=== PATIENT | male | born 1955 | race American Indian/Alaskan Native ===

== ENCOUNTER 2018-05-02 10:15 | Outpatient (CLI) | payer OTHER ==
--- NOTE | 2018-05-02 11:27 | Cat Scan Report ---
CT HEAD WITHOUT CONTRAST: HISTORY: Headache disorder. TECHNIQUE: Sequential 2.5mm CT images. COMPARISON: none. FINDINGS: Cerebral Parenchyma: Within normal limits. Cerebellum: Within normal limits. Brainstem: Within normal limits. Ventricles: Normal. Sella: Normal. Extra-axial spaces: Normal. Basal Cisterns: Normal. Intracranial Hemorrhage: None. Midline Shift: None. Calvarium: Normal. Sinuses: Normal. Mastoid Air Cells: Normal. Visualized Orbits: Normal. IMPRESSION: Cranial CT scan within normal limits.
== END 2018-05-02 10:16 | disposition home or self-care (01) ==
LOC: CT 10:15
PROVIDERS: ATTEND Internal Medicine
DX: R51 Headache (principal); E78.00 Pure hypercholesterolemia, unspecified; I10 Essential (primary) hypertension; Z87.891 Personal history of nicotine dependence
CPT/HCPCS: 70450

== ENCOUNTER 2018-10-11 10:11 | Observation (INO) | payer OTHER, MEDICARE ==
[2018-10-03 13:32] LABS: Basophils # (Auto) 0.1 K/mm3 (0.0-0.1); Basophils % (Auto) 2.4 % (0.0-1.8); Eosinophils # (Auto) 0.1 K/mm3 (0.0-0.4); Eosinophils % (Auto) 1.3 % (0.0-4.3); Hematocrit 43.8 % (35.5-45.6); Hemoglobin 15.3 gm/dl (11.8-15.2); Lymphocytes # (Auto) 2.3 K/mm3 (1.2-5.4); Lymphocytes % (Auto) 48.2 % (13.4-35.0); Mean Corpuscular HGB Conc 35 % (32-34); Mean Corpuscular Volume 80 fl (84-94); Monocytes # (Auto) 0.3 K/mm3 (0.0-0.8); Platelet Count 230 K/mm3 (140-440); Red Cell Distribution Width 13.1 % (13.2-15.2)
--- NOTE | 2018-10-03 13:33 | Anesthesia Consultation ---
Anesthesia Consult and Med Hx Date of service: 10/03/18 - Airway Anesthetic Teeth Evaluation: Good ROM Head & Neck: Adequate Mental/Hyoid Distance: Adequate Mallampati Class: Class II Intubation Access Assessment: Good - Pulmonary Exam CTA: Yes - Cardiac Exam Cardiac Exam: RRR - Pre-Operative Health Status ASA Pre-Surgery Classification: ASA2 Proposed Anesthetic Plan: General (Patient with HTN , cleared by cardiology) - Pulmonary Hx Smoking: Yes (STOPPED 1985) Hx Asthma: No Hx Respiratory Symptoms: No COPD: No Hx Sleep Apnea: No (WILLIAM PRE SCREEN HIGH RISK) - Cardiovascular System Hx Hypertension: Yes (X 11 YRS) Hx Heart Attack/AMI: No - Central Nervous System Hx Seizures: No CVA: No Hx Back Pain: Yes - Gastrointestinal Hx Gastroesophageal Reflux Disease: No - Endocrine Hx Renal Disease: No Hx Liver Disease: No Hx Insulin Dependent Diabetes: No Hx Thyroid Disease: No - Hematic Hx Anemia: No - Other Systems Hx Cancer: No
[2018-10-03 13:45] LABS: INR 1.05 (0.87-1.13)
[2018-10-03 13:49] LABS: Alanine Aminotransferase 13 units/L (7-56); Albumin 4.3 g/dL (3.9-5); BUN/Creatinine Ratio 14; Blood Urea Nitrogen 14 mg/dL (9-20); Calcium 9.5 mg/dL (8.4-10.2); Hemolysis Index 14
[~2018-10-11 10:11] MED LIST: LACTATED RINGERS 1,000 ML IV SCH; VERSED IV NR; ZOFRAN IV NR
[2018-10-11] MEDS ORDERED: XYLOCAINE MPF 2% ONE (12:42)
[2018-10-11] MEDS ORDERED: SUBLIMAZE ONE (12:42)
[2018-10-11] MEDS ORDERED: DIPRIVAN 10 MG/ML IV ONE (12:43)
[2018-10-11] MEDS ORDERED: ANCEF/STERILE WATER 2 GM/20 ML IV NR (13:14)
--- NOTE | 2018-10-11 13:46 | Short Stay Summary ---
Short Stay Documentation Date of service: 10/11/18 - Allergies and Medications Current Medications: Allergies No Known Allergies Allergy (Verified 12/27/17 16:29) Home Medications Medication Instructions Recorded Confirmed Last Taken Type Finasteride [Proscar] 5 mg PO QDAY 12/27/17 10/03/18 10/10/18 History Losartan [Cozaar] 100 mg PO QDAY 12/27/17 10/11/18 10/11/18 08:15 History Naproxen [Naprosyn] 500 mg PO PRN PRN 12/27/17 10/11/18 1 Week Ago History ~10/04/18 Tamsulosin [Flomax] 0.8 mg PO QHS 12/27/17 10/03/18 10/10/18 History hydroCHLOROthiazide [HCTZ] 25 mg PO QDAY 12/27/17 10/03/18 10/10/18 History Active Medications Cefazolin Sodium (Ancef/Sterile Water 2 Gm/20 Ml) 2 gm IV PREOP NR Stop: 10/11/18 23:59 Lactated Ringer's (Lactated Ringers) 1,000 mls @ 100 mls/hr IV DIRECT LOTTIE Last Admin: 10/11/18 11:05 Dose: 100 mls/hr Documented by: Midazolam HCl (Versed) 2 mg IV PREOP NR Stop: 10/11/18 23:59 Last Admin: 10/11/18 11:29 Dose: 2 mg Documented by: Ondansetron HCl (Zofran) 4 mg IV PREOP NR Stop: 10/11/18 23:59 Last Admin: 10/11/18 11:30 Dose: 4 mg Documented by: - Brief post op/procedure progress note Date of procedure: 10/11/18 Pre-op diagnosis: BPH / Inc Empt Post-op diagnosis: same Procedure: TURP / Bilpolar, Plasma Button Anesthesia: GETA - Hospital course Hospital course: orpacu Short Stay Discharge Plan Activity: advance as tolerated Follow up with: AMMY BHATTI MD [Staff Physician] - 7 Days
[2018-10-11] MEDS ORDERED: SUBLIMAZE IV PRN (13:57)
--- NOTE | 2018-10-11 13:57 | Anesthesia Day of Surgery ---
Anesthesia Day of Surgery - Day of Surgery Patient Examined: Yes Patient H&P Reviewed: Yes Patient is NPO: Yes
[2018-10-11] MEDS ORDERED: OMNIPAQUE 300 MG/50 ML (CATH LAB) IV ONE (14:03)
[2018-10-11] MEDS ORDERED: METHYLENE BLUE ONE (14:07)
[2018-10-11] MEDS ORDERED: NACL 0.9% 0 ML IR ONE (16:08)
[2018-10-11] MEDS: DITROPAN PO SCH (16:45)
[2018-10-11] MEDS ORDERED: REGLAN PO PRN (18:07)
[2018-10-11] MEDS ORDERED: NARCAN 0.4 MG/1 ML IV PRN (18:07)
[2018-10-11] MEDS ORDERED: MORPHINE IV PRN ×2 (18:07)
[2018-10-11] MEDS ORDERED: ZOFRAN IV PRN ×2 (18:07→19:03)
[2018-10-11] MEDS ORDERED: LACTATED RINGERS 1,000 ML IV SCH (18:07)
--- NOTE | 2018-10-11 18:50 | Post Anesthesia Evaluation ---
- Post Anesthesia Evaluation Patient Participated: Yes Airway Patent: Yes Stable Respiratory Function: Yes Nausea/Vomiting: No Temp > 96.8F: Yes Pain Manageable: Yes Adequeate Hydration: Yes Anesthesia Complications: No
--- NOTE | 2018-10-11 19:01 | Consultation ---
History of Present Illness - Reason for Consult Consult date: 10/11/18 medical management Requesting physician: AMMY BHATTI - History of Present Illness 63-year-old -[place] male with history of BPH and hypertension underwent TURP today. Postop patient is doing well. Slightly sleepy secondary to effect of anesthesia. No fever or chills. Otherwise doing well. No shortness of breath. Past History Past Medical History: arthritis, hypertension, other (BPH) Past Surgical History: TURP Social history: lives with family, full code Family history: hypertension Medications and Allergies Allergies Allergy/AdvReac Type Severity Reaction Status Date / Time No Known Allergies Allergy Verified 12/27/17 16:29 Home Medications Medication Instructions Recorded Confirmed Last Taken Type Finasteride [Proscar] 5 mg PO QDAY 12/27/17 10/03/18 10/10/18 History Losartan [Cozaar] 100 mg PO QDAY 12/27/17 10/11/18 10/11/18 08:15 History Naproxen [Naprosyn] 500 mg PO PRN PRN 12/27/17 10/11/18 1 Week Ago History ~10/04/18 Tamsulosin [Flomax] 0.8 mg PO QHS 12/27/17 10/03/18 10/10/18 History hydroCHLOROthiazide [HCTZ] 25 mg PO QDAY 12/27/17 10/03/18 10/10/18 History Active Meds: Active Medications Acetaminophen/Hydrocodone Bitart ([place] 5/325) 2 each PO Q6H PRN PRN Reason: Pain, Moderate (4-6) Lactated Ringer's (Lactated Ringers) 1,000 mls @ 125 mls/hr IV DIRECT LOTTIE Metoclopramide HCl (Reglan) 10 mg PO Q6H PRN PRN Reason: Nausea And Vomiting Morphine Sulfate (Morphine) 2 mg IV Q4H PRN PRN Reason: Pain, Moderate (4-6) Morphine Sulfate (Morphine) 4 mg IV Q4H PRN PRN Reason: Pain , Severe (7-10) Naloxone HCl (Narcan 0.4 Mg/1 Ml) 0.1 mg IV Q2MIN PRN PRN Reason: Res Rate </= 8 or 02 SAT < 92% Ondansetron HCl (Zofran) 4 mg IV Q8H PRN PRN Reason: N/V unrelieved by Reglan Oxybutynin Chloride (Ditropan) 5 mg PO TID [facility] Last Admin: 10/11/18 16:45 Dose: 5 mg Documented by: Sodium Chloride (Nacl 0.9%) 2,000 ml IR DIRECT LOTTIE Review of Systems All systems: negative Exam - Constitutional Vitals: Temp Pulse Resp BP Pulse Ox 96.8 F L 58 L 15 139/96 99 10/11/18 16:01 10/11/18 17:00 10/11/18 17:00 10/11/18 17:00 10/11/18 17:00 General appearance: Present: no acute distress, well-nourished - EENT Eyes: Present: PERRL ENT: hearing intact, clear oral mucosa - Neck Neck: Present: supple, normal ROM - Respiratory Respiratory effort: normal Respiratory: bilateral: CTA - Cardiovascular Heart rate: 78 Rhythm: regular Heart Sounds: Present: S1 & S2. Absent: rub, click - Extremities Extremities: no ischemia, pulses intact, pulses symmetrical, No edema Peripheral Pulses: within normal limits - Abdominal General gastrointestinal: Present: soft, non-tender, non-distended, normal bowel sounds Male genitourinary: Present: normal - Integumentary Integumentary: Present: clear, warm, dry - Musculoskeletal Musculoskeletal: gait normal, strength equal bilaterally - Psychiatric Psychiatric: appropriate mood/affect, intact judgment & insight - Neurologic Neurologic: CNII-XII intact, moves all extremities - Allied Health Allied health notes reviewed: nursing, case management Results - Labs CBC & Chem 7: 10/03/18 13:00 10/03/18 13:00 Assessment and Plan - Patient Problems (1) S/P TURP (status post transurethral resection of prostate) Current Visit: Yes Status: Acute Plan to address problem: Postop patient doing well Probable discharge tomorrow We will defer to urology--- admitting physician on this patient (2) Hypertension Current Visit: Yes Status: Chronic Qualifiers: Hypertension type: essential hypertension Qualified Code(s): I10 - Essential (primary) hypertension Plan to address problem: Continue losartan and hydrochlorothiazide (3) BPH (benign prostatic hyperplasia) Current Visit: Yes Status: Chronic Qualifiers: Lower urinary tract symptom presence: symptoms present Plan to address problem: Patient is status post TURP May not need finasteride and Flomax Will defer to urology (4) Hypokalemia Current Visit: Yes Status: Acute Plan to address problem: Mild Supplemented Check a.m. labs (5) DVT prophylaxis Current Visit: Yes Status: Acute Plan to address problem: As per urology SCDs for now GI prophylaxis also
[2018-10-11] MEDS ORDERED: DILAUDID IV PRN (19:03)
[2018-10-11] MEDS ORDERED: PERCOCET 5/325 PO PRN (19:03)
[2018-10-11] MEDS ORDERED: TYLENOL PO PRN (19:03)
[2018-10-11] MEDS ORDERED: SODIUM CHLORIDE FLUSH SYRINGE 10 ML IV PRN (19:03)
[2018-10-11] MEDS ORDERED: NON-FORMULARY (Losartan [Cozaar] 100 MG) PO SCH (19:15)
[2018-10-11] MEDS: NORCO 5/325 PO PRN (20:35)
[2018-10-11] MEDS: COZAAR PO SCH ×2 (21:10→21:17)
[2018-10-11] MEDS: PEPCID IV SCH (21:11)
[2018-10-11] MEDS: SODIUM CHLORIDE FLUSH SYRINGE 10 ML IV SCH (21:11)
[2018-10-11 23:09] LABS: Basophils # (Auto) 0.1 K/mm3 (0.0-0.1); Basophils % (Auto) 1.3 % (0.0-1.8); Eosinophils # (Auto) 0.1 K/mm3 (0.0-0.4); Eosinophils % (Auto) 0.8 % (0.0-4.3); Hematocrit 37.9 % (35.5-45.6); Hemoglobin 13.5 gm/dl (11.8-15.2); Lymphocytes # (Auto) 2.5 K/mm3 (1.2-5.4); Lymphocytes % (Auto) 33.1 % (13.4-35.0); Mean Corpuscular HGB Conc 36 % (32-34); Mean Corpuscular Volume 79 fl (84-94); Monocytes # (Auto) 0.4 K/mm3 (0.0-0.8); Monocytes % (Auto) 4.7 % (0.0-7.3); Platelet Count 212 K/mm3 (140-440); Red Blood Count 4.78 M/mm3 (3.65-5.03)
[2018-10-11] MEDS: NACL 0.9% IR SCH (23:33)
[2018-10-11 23:34] LABS: BUN/Creatinine Ratio 11; Blood Urea Nitrogen 12 mg/dL (9-20); Calcium 8.7 mg/dL (8.4-10.2); Hemolysis Index 7
[2018-10-12] MEDS: NACL 0.45% 1000 ML 1,000 ML IV SCH ×2 (02:59→05:51)
[2018-10-12] MEDS: NACL 0.9% IR SCH ×2 (05:52→08:34)
[2018-10-12 07:47] LABS: Basophils # (Auto) 0.1 K/mm3 (0.0-0.1); Basophils % (Auto) 0.7 % (0.0-1.8); Eosinophils % (Auto) 0.3 % (0.0-4.3); Hematocrit 41.3 % (35.5-45.6); Hemoglobin 14.3 gm/dl (11.8-15.2); Lymphocytes # (Auto) 1.7 K/mm3 (1.2-5.4); Mean Corpuscular HGB Conc 35 % (32-34); Mean Corpuscular Volume 80 fl (84-94); Monocytes # (Auto) 0.4 K/mm3 (0.0-0.8); Monocytes % (Auto) 4.2 % (0.0-7.3); Platelet Count 207 K/mm3 (140-440); Red Blood Count 5.15 M/mm3 (3.65-5.03); Red Cell Distribution Width 13.4 % (13.2-15.2)
[2018-10-12 08:16] LABS: BUN/Creatinine Ratio 10; Blood Urea Nitrogen 12 mg/dL (9-20); Calcium 8.6 mg/dL (8.4-10.2); Hemolysis Index 6
[2018-10-12] MEDS: DITROPAN PO SCH ×2 (08:31→16:26)
--- NOTE | 2018-10-12 09:41 | Fluoroscopy Report ---
8 fluoroscopic images submitted Indication: Intraoperative localization Impression: 8 images of the abdomen were submitted for documentation purposes with radiology involve ment. Bilateral retrograde urography. Please refer to the operative note for complete details. Fluoroscopic time: 21 seconds Signer Name: Mat Yee MD Signed: 10/12/2018 9:37 AM Workstation Name: [id number]
[2018-10-12] MEDS: COZAAR PO SCH (10:57)
[2018-10-12] MEDS: NORCO 5/325 PO PRN (10:58)
[2018-10-12] MEDS: PEPCID IV SCH (10:59)
[2018-10-12] MEDS: SODIUM CHLORIDE FLUSH SYRINGE 10 ML IV SCH (10:59)
[2018-10-12] MEDS ORDERED: NACL 0.9% IR ONE (12:18)
--- NOTE | 2018-10-12 12:39 | Progress Note ---
Assessment and Plan BPH / INC EMPT - POD 1 TURP - doing well - d/c home if when OK w/ Medicine - Pt has in his bag Rx filled for Lortab / cefuroxime - f/u outpt Wednesday 8:30 AM jak Subjective Date of service: 10/12/18 Principal diagnosis: bph urinary retention post op turp Objective - Constitutional Vitals: Vital Signs - 12hr 10/12/18 10/12/18 06:53 10:57 Temperature 98.9 F Pulse Rate 67 58 L Respiratory 18 Rate Blood Pressure 110/60 102/58 O2 Sat by Pulse 92 Oximetry General appearance: Present: no acute distress - Gastrointestinal General gastrointestinal: Present: soft Rectal Exam: other ( cath of min tinge; irrig before clear) - Labs CBC & Chem 7: 10/12/18 06:51 10/12/18 06:51 Labs: Abnormal lab results 10/11/18 10/11/18 10/12/18 Range/Units 22:57 22:57 06:51 RBC 5.15 H (3.65-5.03) M/mm3 MCV 79 L 80 L (84-94) fl MCHC 36 H 35 H (32-34) % RDW 13.0 L (13.2-15.2) % Seg Neutrophils % 78.8 H (40.0-70.0) % Seg Neutrophils # 8.5 H (1.8-7.7) K/mm3 Sodium 146 H (137-145) mmol/L Chloride 110.5 H (98-107) mmol/L Glucose (75-100) mg/dL 10/12/18 Range/Units 06:51 RBC (3.65-5.03) M/mm3 MCV (84-94) fl MCHC (32-34) % RDW (13.2-15.2) % Seg Neutrophils % (40.0-70.0) % Seg Neutrophils # (1.8-7.7) K/mm3 Sodium (137-145) mmol/L Chloride 107.5 H (98-107) mmol/L Glucose 113 H (75-100) mg/dL Medications & Allergies - Medications Allergies/Adverse Reactions: Allergies No Known Allergies Allergy (Verified 12/27/17 16:29) Home Medications: Home Medications Medication Instructions Recorded Confirmed Last Taken Type Finasteride [Proscar] 5 mg PO QDAY 12/27/17 10/03/18 10/10/18 History Losartan [Cozaar] 100 mg PO QDAY 12/27/17 10/11/18 10/11/18 08:15 History Naproxen [Naprosyn] 500 mg PO PRN PRN 12/27/17 10/11/18 1 Week Ago History ~10/04/18 Tamsulosin [Flomax] 0.8 mg PO QHS 12/27/17 10/03/18 10/10/18 History hydroCHLOROthiazide [HCTZ] 25 mg PO QDAY 12/27/17 10/03/18 10/10/18 History Active Medications: Generic Name Dose Route Start Last Admin Trade Name Freq PRN Reason Stop Dose Admin Acetaminophen 650 mg 10/11/18 19:03 10/12/18 05:56 Tylenol PO 650 mg Q4H PRN Administration Pain MILD(1-3)/Fever >100.5/PETER Acetaminophen/Hydrocodone Bitart 2 each 10/11/18 18:07 10/12/18 10:58 [place] 5/325 PO 2 each Q6H PRN Administration Pain, Moderate (4-6) Famotidine 20 mg 10/11/18 22:00 10/12/18 10:59 Pepcid IV 20 mg BID LOTTIE Administration Hydromorphone HCl 0.5 mg 10/11/18 19:03 Dilaudid IV Q3H PRN Pain , Severe (7-10) Lactated Ringer's 1,000 mls @ 125 mls/hr 10/11/18 18:07 Lactated Ringers IV DIRECT LOTTIE Sodium Chloride 1,000 mls @ 75 mls/hr 10/11/18 20:00 10/12/18 05:51 Nacl 0.45% 1000 Ml IV 75 mls/hr DIRECT LOTTIE Administration Losartan Potassium 100 mg 10/11/18 19:30 10/12/18 10:57 Cozaar PO Not Given QDAY LOTTIE Metoclopramide HCl 10 mg 10/11/18 18:07 Reglan PO Q6H PRN Nausea And Vomiting Morphine Sulfate 2 mg 10/11/18 18:07 Morphine IV Q4H PRN Pain, Moderate (4-6) Morphine Sulfate 4 mg 10/11/18 18:07 Morphine IV Q4H PRN Pain , Severe (7-10) Naloxone HCl 0.1 mg 10/11/18 18:07 Narcan 0.4 Mg/1 Ml IV Q2MIN PRN Res Rate </= 8 or 02 SAT < 92% Ondansetron HCl 4 mg 10/11/18 18:07 Zofran IV Q8H PRN N/V unrelieved by Regravi Oxybutynin Chloride 5 mg 10/11/18 17:00 10/12/18 08:31 Ditropan PO 5 mg TID LOTTIE Administration Oxycodone/Acetaminophen 1 tab 10/11/18 19:03 Percocet 5/325 PO Q6H PRN Pain, Moderate (4-6) Sodium Chloride 2,000 ml 10/11/18 18:07 10/12/18 08:34 Nacl 0.9% IR 2,000 ml DIRECT LOTTIE Administration Sodium Chloride 10 ml 10/11/18 22:00 10/12/18 10:59 Sodium Chloride Flush Syringe 10 Ml IV 10 ml BID LOTTIE Administration Sodium Chloride 10 ml 10/11/18 19:03 Sodium Chloride Flush Syringe 10 Ml IV PRN PRN LINE FLUSH
--- NOTE | 2018-10-12 12:52 | Progress Note ---
Assessment and Plan Assessment and plan: (1) S/P TURP (status post transurethral resection of prostate) - Patient is doing well - Postop management is per urology (2) Hypertension - We'll controlled - Continue losartan and hydrochlorothiazide (3) BPH (benign prostatic hyperplasia) -Management per urology (4) Hypokalemia - Supplemented and potassium level is normal this morning Disposition; patient is medically cleared. Discharge is per urology. History Interval history: Patient was seen and evaluated this morning, patient is complaining headache which is chronic. Hospitalist Physical - Physical exam Narrative exam: Not in cardiopulmonary distress. The patient is obese. Vital signs as documented. Head exam is unremarkable. No scleral icterus . Neck is without jugular venous distension, thyromegaly, or carotid bruits. Lungs are clear to auscultation. Cardiac exam reveals regular rate and Rhythm. First and second heart sounds normal. No murmurs, rubs or gallops. Abdominal exam reveals normal bowel sounds, no masses, no organomegaly and no aortic enlargement. Extremities are nonedematous and both femoral and pedal pulses are normal. Patel catheter in place and draining tea colored urine. CONTENT ASSISTANT: Alert and oriented 3. No focal weakness. - Constitutional Vitals: Temp Pulse Resp BP Pulse Ox 98.9 F 58 L 18 102/58 92 10/12/18 06:53 10/12/18 10:57 10/12/18 06:53 10/12/18 10:57 10/12/18 06:53 General appearance: Present: no acute distress Results - Labs CBC & Chem 7: 10/12/18 06:51 10/12/18 06:51 Labs: Laboratory Last Values WBC 10.7 K/mm3 (4.5-11.0) 10/12/18 06:51 RBC 5.15 M/mm3 (3.65-5.03) H 10/12/18 06:51 Hgb 14.3 gm/dl (11.8-15.2) 10/12/18 06:51 Hct 41.3 % (35.5-45.6) 10/12/18 06:51 MCV 80 fl (84-94) L 10/12/18 06:51 MCH 28 pg (28-32) 10/12/18 06:51 MCHC 35 % (32-34) H 10/12/18 06:51 RDW 13.4 % (13.2-15.2) 10/12/18 06:51 Plt Count 207 K/mm3 (140-440) 10/12/18 06:51 Lymph % (Auto) 16.0 % (13.4-35.0) 10/12/18 06:51 [place] % (Auto) 4.2 % (0.0-7.3) 10/12/18 06:51 Eos % (Auto) 0.3 % (0.0-4.3) 10/12/18 06:51 Baso % (Auto) 0.7 % (0.0-1.8) 10/12/18 06:51 Lymph # 1.7 K/mm3 (1.2-5.4) 10/12/18 06:51 [place] # 0.4 K/mm3 (0.0-0.8) 10/12/18 06:51 Eos # 0.0 K/mm3 (0.0-0.4) 10/12/18 06:51 Baso # 0.1 K/mm3 (0.0-0.1) 10/12/18 06:51 Seg Neutrophils % 78.8 % (40.0-70.0) H 10/12/18 06:51 Seg Neutrophils # 8.5 K/mm3 (1.8-7.7) H 10/12/18 06:51 PT 13.4 Sec. (12.2-14.9) 10/03/18 13:00 INR 1.05 (0.87-1.13) 10/03/18 13:00 APTT 30.0 Sec. (24.2-36.6) 10/03/18 13:00 Sodium 145 mmol/L (137-145) 10/12/18 06:51 Potassium 4.1 mmol/L (3.6-5.0) 10/12/18 06:51 Chloride 107.5 mmol/L (98-107) H 10/12/18 06:51 Carbon Dioxide 24 mmol/L (22-30) 10/12/18 06:51 18 mmol/L 10/12/18 06:51 BUN 12 mg/dL (9-20) 10/12/18 06:51 1.2 mg/dL (0.8-1.5) 10/12/18 06:51 Estimated GFR > 60 ml/min 10/12/18 06:51 10 % 10/12/18 06:51 Glucose 113 mg/dL (75-100) H 10/12/18 06:51 5.7 % (4-6) 10/11/18 22:57 Calcium 8.6 mg/dL (8.4-10.2) 10/12/18 06:51 0.70 mg/dL (0.1-1.2) 10/03/18 13:00 AST 23 units/L (5-40) 10/03/18 13:00 ALT 13 units/L (7-56) 10/03/18 13:00 115 units/L (35-129) 10/03/18 13:00 7.5 g/dL (6.3-8.2) 10/03/18 13:00 4.3 g/dL (3.9-5) 10/03/18 13:00 1.3 % 10/03/18 13:00 Blood Type O NEGATIVE 10/11/18 11:05 Antibody Screen Negative 10/11/18 11:05 Active Medications - Current Medications Current Medications: Generic Name Dose Route Start Last Admin Trade Name Freq PRN Reason Stop Dose Admin Acetaminophen 650 mg 10/11/18 19:03 10/12/18 05:56 Tylenol PO 650 mg Q4H PRN Administration Pain MILD(1-3)/Fever >100.5/PETER Acetaminophen/Hydrocodone Bitart 2 each 10/11/18 18:07 10/12/18 10:58 [place] 5/325 PO 2 each Q6H PRN Administration Pain, Moderate (4-6) Famotidine 20 mg 10/11/18 22:00 10/12/18 10:59 Pepcid IV 20 mg BID LOTTIE Administration Hydromorphone HCl 0.5 mg 10/11/18 19:03 Dilaudid IV Q3H PRN Pain , Severe (7-10) Lactated Ringer's 1,000 mls @ 125 mls/hr 10/11/18 18:07 Lactated Ringers IV DIRECT LOTTIE Sodium Chloride 1,000 mls @ 75 mls/hr 10/11/18 20:00 10/12/18 05:51 Nacl 0.45% 1000 Ml IV 75 mls/hr DIRECT LOTTIE Administration Losartan Potassium 100 mg 10/11/18 19:30 10/12/18 10:57 Cozaar PO Not Given QDAY LOTTIE Metoclopramide HCl 10 mg 10/11/18 18:07 Reglan PO Q6H PRN Nausea And Vomiting Morphine Sulfate 2 mg 10/11/18 18:07 Morphine IV Q4H PRN Pain, Moderate (4-6) Morphine Sulfate 4 mg 10/11/18 18:07 Morphine IV Q4H PRN Pain , Severe (7-10) Naloxone HCl 0.1 mg 10/11/18 18:07 Narcan 0.4 Mg/1 Ml IV Q2MIN PRN Res Rate </= 8 or 02 SAT < 92% Ondansetron HCl 4 mg 10/11/18 18:07 Zofran IV Q8H PRN N/V unrelieved by Reglan Oxybutynin Chloride 5 mg 10/11/18 17:00 10/12/18 08:31 Ditropan PO 5 mg TID LOTTIE Administration Oxycodone/Acetaminophen 1 tab 10/11/18 19:03 Percocet 5/325 PO Q6H PRN Pain, Moderate (4-6) Sodium Chloride 2,000 ml 10/11/18 18:07 10/12/18 08:34 Nacl 0.9% IR 2,000 ml DIRECT LOTTIE Administration Sodium Chloride 10 ml 10/11/18 22:00 10/12/18 10:59 Sodium Chloride Flush Syringe 10 Ml IV 10 ml BID LOTTIE Administration Sodium Chloride 10 ml 10/11/18 19:03 Sodium Chloride Flush Syringe 10 Ml IV PRN PRN LINE FLUSH
[2018-10-12] MEDS ORDERED: NACL 0.9% IR NR (17:11)
[2018-10-12 19:12] VITALS: BP 107/63
--- NOTE | 2018-10-24 10:06 | Operative Report ---
PREOPERATIVE DIAGNOSIS: Benign prostatic hypertrophy with incomplete emptying. POSTOPERATIVE DIAGNOSIS: Benign prostatic hypertrophy with incomplete emptying. PROCEDURES: Cystoscopy, RPG, transurethral resection of prostate using bipolar plasma button. SURGEON: Krishna Broderick MD ANESTHESIA: General. SPECIMENS: Prostate. ESTIMATED BLOOD LOSS: Minimal. COMPLICATIONS: None. FINDINGS: Very large median lobe, lateral lobes. COMPLICATIONS: None. ESTIMATED BLOOD LOSS: 100 mL. CLINICAL INDICATIONS: The patient was counseled on risks, benefits, complications, and alternatives. The patient desired to proceed, understood risks of chronic retention, chronic pain, urinary incontinence, erectile dysfunction. DESCRIPTION OF PROCEDURE: Transferred to the OR suite in supine position, anesthesia, dorsal lithotomy, prepped and draped in standard fashion. A 22-Kosovan scope passed, demonstrating large lateral lobe, large median lobe, pancystoscopy, no tumors. Using a greater transurethral resection, bipolar scope was passed. Given the large median lobe, it was elected to resect this with a resection by the bipolar loop. The bipolar loop was then used to sequentially resect the median lobe in our standard fashion starting superficial going deeper and deeper, paying close attention the ureteral orifices and stayed away from the ureteral orifice the entire time. Next, our attention was taken down to resect the median lobe. We started at the distal aspect of the prostate and circumferentially going from one side to the other with the less resection anteriorly. We made resection in the [address] o'[address] around to the 10 o'clock position. We sequentially did with the right side deeper and deeper to the midpoint and then did the left side. We then brought this further closer to the verumontanum, but just staying proximal to the verumontanum so not to damage the sphincter. Then that was used with the plasma button with a combination of plasma button and the loop and then we cauterized all bleeding areas. A 24-Kosovan 3-way catheter was inserted, irrigated and clear. Balloon inflated to 50 mL and irrigated clear. Scope withdrawn. Exam under anesthesia, bilateral descended testicles, prostate, no nodules. The patient was awakened and transferred to PACU in good and stable condition. JOB# [id number] ATS/NTS
== END 2018-10-12 19:00 | disposition home or self-care (01) ==
LOC: OR 10:11 → 3A 16:30
PROVIDERS: ADMIT Internal Medicine; ATTEND Urology
DX: N40.1 Benign prostatic hyperplasia with lower urinary tract symptoms (principal); M19.90 Unspecified osteoarthritis, unspecified site; I10 Essential (primary) hypertension; E87.6 Hypokalemia; G43.909 Migraine, unspecified, not intractable, without status migrainosus; E78.00 Pure hypercholesterolemia, unspecified; Z79.899 Other long term (current) drug therapy
CPT/HCPCS: 36415; 52601; 74420; 80048; 80053; 83036; 85025; 85610; 85730; 86850; 86900; 86901; 88305; 96374; 96375; 96376; A4217; G0378; J0690; J2250; J2405; J2704; J3010; J7030; J7120; Q9967; Q9968

== ENCOUNTER 2021-03-12 05:54 | Day surgery (SDC) | payer MEDICARE ==
[2021-03-03 10:24] LABS: Hematocrit 49.1 % (35.5-45.6); Hemoglobin 16.3 gm/dl (11.8-15.2); Mean Corpuscular HGB Conc 33 % (32-34); Mean Corpuscular Volume 80 fl (84-94); Platelet Count 264 K/mm3 (140-440); Red Blood Count 6.11 M/mm3 (3.65-5.03); Red Cell Distribution Width 14.1 % (13.2-15.2)
--- NOTE | 2021-03-03 10:34 | Anesthesia Consultation ---
Anesthesia Consult and Med Hx Date of service: 03/12/21 - Airway Anesthetic Teeth Evaluation: Good ROM Head & Neck: Adequate Mental/Hyoid Distance: Adequate Mallampati Class: Class I Intubation Access Assessment: Good (Previous LMA 5) - Pulmonary Exam CTA: Yes - Cardiac Exam Cardiac Exam: RRR - Pre-Operative Health Status ASA Pre-Surgery Classification: ASA2 Proposed Anesthetic Plan: General - Pulmonary Hx Smoking: Yes (quit 1985) Hx Asthma: No (noted in chart review however patient denies; no INHs on med list) Hx Respiratory Symptoms: No Hx Sleep Apnea: No (WILLIAM PRE SCREEN HIGH RISK) - Cardiovascular System Hx Hypertension: Yes Hx Heart Attack/AMI: No Hx Percutaneous Transluminal Coronary Angioplasty (PTCA): No - Central Nervous System CVA: No Hx Back Pain: Yes - Gastrointestinal Hx Gastroesophageal Reflux Disease: No - Endocrine Hx Renal Disease: No Hx Liver Disease: No Hx Insulin Dependent Diabetes: No Hx Non-Insulin Dependent Diabetes: No Hx Thyroid Disease: No - Other Systems Hx Obesity: No - Additional Comments Anesthesia Medical History Comments: Hx intractable hiccups after previous anesthetics for which he received a prescription (likely thorazine but patient is unsure).
[2021-03-03 10:40] LABS: Alanine Aminotransferase 20 units/L (7-56); Albumin 4.5 g/dL (3.9-5); BUN/Creatinine Ratio 15; Blood Urea Nitrogen 15 mg/dL (9-20); Calcium 9.3 mg/dL (8.4-10.2); Hemolysis Index 5
[2021-03-12] MEDS ORDERED: LACTATED RINGERS 1,000 ML IV SCH ×2 (06:00→06:45)
[2021-03-12] MEDS ORDERED: propofoL 200 MG/20 ML VIAL IV ONE (07:07)
[2021-03-12] MEDS ORDERED: dexAMETHasone 20 MG/5 ML VIAL ONE (07:08)
[2021-03-12] MEDS ORDERED: ePHEDrine SULFATE 50 MG/1 ML INJ ONE (07:08)
[2021-03-12] MEDS ORDERED: ONDANSETRON 4 MG/2 ML INJ ONE (07:08)
[2021-03-12] MEDS ORDERED: fentaNYL 100 MCG/2 ML INJ ONE (07:08)
[2021-03-12] MEDS ORDERED: PHENYLEPHRINE/NS 1,000 MCG/10 ML SYRINGE (OR USE) IV ONE (07:13)
[2021-03-12] MEDS ORDERED: ceFAZolin/Water 2 GM/20 ML 2 GM/20 ML SYRINGE IV NR (07:30)
[2021-03-12] MEDS ORDERED: ceFAZolin/Water 2 GM/20 ML 2 GM/20 ML SYRINGE IV ONE (07:53)
[2021-03-12] MEDS ORDERED: WATER FOR IRRIG STERILE 2000 ML IR ONE (08:18)
[2021-03-12] MEDS ORDERED: WATER FOR IRRIG STERILE 1,500 ML BOTTLE IR ONE (08:22)
[2021-03-12] MEDS ORDERED: BACITRACIN ZINC OINT 28.4 GM TP ONE ×2 (08:25→08:45)
[2021-03-12] MEDS ORDERED: HYDROmorphone 1 MG/1 ML INJ IV PRN (09:10)
[2021-03-12 10:31] VITALS: BP 130/86
--- NOTE | 2021-03-12 14:28 | Operative Report ---
DATE OF SURGERY: 03/12/2021 PREOPERATIVE DIAGNOSES: 1. Refractory lower urinary tract symptoms despite medical therapy. 2. Scrotal lesion. POSTOPERATIVE DIAGNOSES: 1. Refractory lower urinary tract symptoms despite medical therapy. 2. Scrotal lesion. OPERATIVE PROCEDURES: 1. Flexible cystoscopy. 2. Excision of scrotal lesion approximately 2 cm. ATTENDING: Mo Bundy MD. HOT MAN: None. ANESTHESIA: General. ESTIMATED BLOOD LOSS: 5 mL. DRAINS: None. COMPLICATIONS: None. SPECIMENS: Scrotal lesion. INDICATIONS FOR PROCEDURE: The patient is a 65-year-old man with refractory lower urinary tract symptoms and a whitish discharge from the penis despite medical therapy. He wishes to undergo a diagnostic cystoscopy. He also has a whitish plaque on his left upper scrotum of unclear significance. I worry that it may be a Paget's disease. He presents today also for an excisional biopsy of the whitish plaque for pathologic review. DESCRIPTION OF PROCEDURE IN DETAIL: After induction of suitable anesthesia and proper positioning and preparation in the dorsal lithotomy position, a flexible cystoscope was used to enter the bladder under direct visualization. There were no bladder or urethral mucosal lesions. There were no urethral strictures. The ureteral orifices were in their normal positions. The patient did have a mildly enlarged prostate with some median lobe hypertrophy. Otherwise, the cystoscopy was unremarkable. We then turned our attention to the scrotal lesion. An Adson forceps was used to grasp a visitor services representative portion of the whitish plaque lesion on the scrotum. This was then circumferentially excised using a combination of cutting and coagulation with electrocautery. The lesion only appeared to be in the skin level and did not appear to go any deeper. The subcutaneous tissues of the scrotum were then coagulated to ensure hemostasis. The scrotal skin was then reapproximated with a running Vicryl suture. It was hemostatic. Dressings were applied. The patient was then awakened from anesthesia and transported to the recovery room in stable condition. He tolerated the procedure well. He will return in 7-10 days to review pathology and discuss the cystoscopic findings. TID: [id number] RECEIPT: [id number] FLORENCIO/AGUS
--- NOTE | 2021-03-12 17:51 | Anesthesia Day of Surgery ---
Anesthesia Day of Surgery - Day of Surgery Patient Examined: Yes Patient H&P Reviewed: Yes Patient is NPO: Yes
--- NOTE | 2021-03-12 17:51 | Post Anesthesia Evaluation ---
- Post Anesthesia Evaluation Patient Participated: Yes Airway Patent: Yes Stable Respiratory Function: Yes Nausea/Vomiting: No Temp > 96.8F: Yes Pain Manageable: Yes Adequeate Hydration: Yes Anesthesia Complications: No Block Receding Appropriately: Not Applicable Patient on Ventilator: No
== END 2021-03-12 09:50 | disposition home or self-care (01) ==
LOC: OR 05:54
PROVIDERS: ATTEND Urology
DX: N40.1 Benign prostatic hyperplasia with lower urinary tract symptoms (principal); N50.89 Other specified disorders of the male genital organs; L30.8 Other specified dermatitis; Z20.822 Contact with and (suspected) exposure to COVID-19; I10 Essential (primary) hypertension; Z87.891 Personal history of nicotine dependence; Z79.899 Other long term (current) drug therapy; Z98.890 Other specified postprocedural states
CPT/HCPCS: 11422; 36415; 52000; 80053; 85027; 88305; C1758; J0690; J1100; J1170; J2370; J2405; J2704; J3010; J3490; J7120; U0003